=== PATIENT | male | born 1970 | race Caucasian/White ===

== ENCOUNTER → 2023-07-11 10:45 | Outpatient (REF) | payer OTHER, SELFPAY ==
[2023-07-11 11:25] LABS: % Basophils 1.1 % (0-2); % Eosinophils 2.5 % (0-6); % Immature Granulocytes 0.2 % (0-0.5); % Neutrophils 62.2 % (42.2-75.2); Absolute Basophils 0.1 10^3/uL (0-0.2); Absolute Eosinophils 0.2 10^3/uL (0-0.7); Absolute Lymphocytes 1.7 10^3/uL (1.2-3.4); Absolute Monocytes 0.5 10^3/uL (0.1-0.6); Hematocrit 45.2 % (39.0-52.0); Hemoglobin 15.6 g/dL (13.0-18.0); Mean Corp Hgb Conc. 34.5 g/dL (33.0-37.0); Mean Corpuscular Volume 89.9 fL (80.0-94.0); Mean Platelet Volume 10.9 fL (7.4-10.4); Nucleated Red Blood Cells % 0 % (-); Platelet Count 257 10^3/uL (130-400); Red Blood Cell Count 5.03 10^6/uL (4.70-6.10); Red Cell Dist. Width 13.8 % (11.5-14.5); White Blood Cell Count 6.5 10^3/uL (4.8-10.8)
[2023-07-11 11:28] LABS: Urine Albumin Negative (Neg - Trace); Urine Bilirubin Negative (Negative); Urine Character Clear (Clear); Urine Color Yellow; Urine Glucose Negative (Negative); Urine Ketone Negative (Negative); Urine Leukocyte Negative (Negative); Urine Nitrite Negative (Negative); Urine Occult Blood Negative (Negative); Urine Urobilinogen Negative (Neg - 1+)
[2023-07-11 11:51] LABS: ALT (SGPT) 29 U/L (0-50); AST (SGOT) 24 U/L (17-59); Albumin 4.4 g/dl (3.5-5.0); Alkaline Phosphatase 60 U/L (38-126); Blood Urea Nitrogen 10 mg/dl (9-20); Calcium 9.7 mg/dl (8.4-10.2); Carbon Dioxide 32 mmol/L (22-30); Chloride 99 mmol/L (98-107); Glucose 102 mg/dl (70-99); HDL Cholesterol 45 mg/dl; LDL Cholesterol, Calculated 94 mg/dl; Potassium 4.9 mmol/L (3.5-5.1); Sodium 137 mmol/L (135-145); Total Bilirubin 0.9 mg/dl (0.2-1.3); Total Cholesterol 160 mg/dl (50-199); Total Protein 7.3 g/dl (6.3-8.2); Triglyceride 108 mg/dl (10-149); Very Low Density Lipoprotein 21 mg/dl (0-30); eGFR > 60.00
[2023-07-11 12:20] LABS: PSA, Total - Screen 1.23 ng/ml (0.0-4.0)
[2023-07-13 16:52] LABS: Free T3 3.99 pg/ml (2.77-5.27)
[2023-07-14 08:32] LABS: Glycohemoglobin (HgbA1c) 5.6 % (4.0-5.6)
[2023-07-16 00:23] LABS: Thyroglobulin Antibodies <0.9 IU/mL (0.0-4.0)
== END ==
LOC: REG 10:45
PROVIDERS: ATTENDING PHYSICIAN Nurse Practitioner Family
DX: R09.81 Nasal congestion (principal); R05.3 Chronic cough; R03.0 Elevated blood-pressure reading, without diagnosis of hypertension; Z01.89 Encounter for other specified special examinations
CPT/HCPCS: 36415; 80053; 80061; 81003; 83036; 84439; 84443; 84481; 85025; 86376; 86800; G0103

== ENCOUNTER 2023-08-31 14:51 | Emergency (ER) | payer OTHER, SELFPAY ==
[2023-08-31 15:12] VITALS: BP 147/94
[2023-08-31 15:35] LABS: % Basophils 0.9 % (0-2); % Eosinophils 3.4 % (0-6); % Immature Granulocytes 0.3 % (0-0.5); % Lymphocytes 18.8 % (20.5-51.1); % Neutrophils 68.6 % (42.2-75.2); Absolute Basophils 0.1 10^3/uL (0-0.2); Absolute Eosinophils 0.4 10^3/uL (0-0.7); Absolute Monocytes 0.8 10^3/uL (0.1-0.6); Absolute Neutrophils 7.1 10^3/uL (1.4-6.5); Hematocrit 44.9 % (39.0-52.0); Hemoglobin 15.6 g/dL (13.0-18.0); Mean Corp Hgb Conc. 34.7 g/dL (33.0-37.0); Mean Corpuscular Hgb 31.4 pg (27.0-31.0); Mean Corpuscular Volume 90.3 fL (80.0-94.0); Mean Platelet Volume 11.3 fL (7.4-10.4); Nucleated Red Blood Cells % 0 % (-); Platelet Count 220 10^3/uL (130-400); Red Blood Cell Count 4.97 10^6/uL (4.70-6.10); Red Cell Dist. Width 13.4 % (11.5-14.5); White Blood Cell Count 10.4 10^3/uL (4.8-10.8)
[2023-08-31 15:47] LABS: ALT (SGPT) 17 U/L (0-50); AST (SGOT) 21 U/L (17-59); Albumin 4.4 g/dl (3.5-5.0); Alkaline Phosphatase 68 U/L (38-126); Blood Urea Nitrogen 17 mg/dl (9-20); Carbon Dioxide 26 mmol/L (22-30); Chloride 103 mmol/L (98-107); Glucose 112 mg/dl (70-99); Potassium 4.3 mmol/L (3.5-5.1); Sodium 136 mmol/L (135-145); Total Bilirubin 0.6 mg/dl (0.2-1.3); Total Protein 7.4 g/dl (6.3-8.2); eGFR > 60.00
--- NOTE | 2023-08-31 18:05 | ED.GENMED ---
History of Present Illness
<Haroon Cummings PA-C - Last Filed: 08/31/23 18:42>
General
Chief Complaint: Skin Problem
Source: patient
Time Seen by Provider: 08/31/23 17:49
Travel History
Have you had any contact with someone who has COVID-19?: No
Do you have any symptoms of coronavirus? Fever > 100 degrees, chills, cough, shortness of breath, sore throat, loss of taste or smell, muscle aches, or headache?: No
History of Present Illness
History of Present Illness:
53-year-old male with no significant past medical history presenting the emergency department for evaluation of 2 separate rashes/skin complications stating that for the last 3 months he has had a rash to his anterior upper thighs and groin area
which his primary care has been working him up for. He has been on 2 separate creams/ointments and had multiple labs done including workup for possible syphilis but states that back negative and he has not had much improvement with any of the
creams. He has attempted to put a mvah-vhx-uuxzriv medication from his cahto [place] called early in green over the area but states this has not caused him any relief. Over the last 3 days worsening pain and redness to his left lower leg in the
mid calf which she states he was more concerned about for possible infection as he noted some drainage from that area this morning. he denies any fevers, chills, rigors or any other concerns.
Past History
<Haroon Cummings PA-C - Last Filed: 08/31/23 18:42>
Past History
ED Past Medical History: None
ED Past Surgical History: None
Social History
Tobacco: Non-smoker
Alcohol: None
Drug: None
Personal: Single
Living: with family
Employment: Employed
Review of Systems
<Haroon Cummings PA-C - Last Filed: 08/31/23 18:42>
Review of Systems
All Other Systems: ROS reviewed and negative except as documented in HPI and ROS
Phy Exam
<Haroon Cummings PA-C - Last Filed: 08/31/23 18:42>
Physical Exam
Physical Exam:
GENERAL: Alert , in no apparent distress
EYE: conjunctiva clear
Head: Normocephalic atraumatic
NECK: Supple,
ENT: mmm.
LUNGS: no acute respiratory distress
NEUROLOGICAL: Alert and oriented
SKIN: Warm and dry, dried scaling rash to the bilateral anterior thighs and genital region. There is also a cream blotches from patient's jalc-emd-kozqhal medication noted. The left lower leg over the mid gastrocnemius has mild area of erythema
with purulent drainage centrally. There is no streaking or lymphangitis.
MUSCULOSKELETAL: well perfused.
PSYCH: Normal and appropriate interaction.
Scores
<Haroon Cummings PA-C - Last Filed: 08/31/23 18:42>
Heart Failure Risk
Heart Failure Risk Score: Not Applicable
Heart Score for Chest Pain Patients
STEMI patient?: Not applicable
Withdrawal Assessment of Alcohol
Withdrawal Assessment Completed?: Not applicable
Course
<Haroon Cummings PA-C - Last Filed: 08/31/23 18:42>
Orders/Labs/Results
Orders:
Orders
08/31/23 15:21
Complete Blood Count/With Diff Urgent
Comprehensive Metabolic Panel Urgent
Abnormal Lab Results
08/31/23
15:21
MCH 31.4 H pg
(27.0-31.0)
MPV 11.3 H fL
(7.4-10.4)
Absolute Neuts (auto) 7.1 H 10^3/uL
(1.4-6.5)
Absolute Monos (auto) 0.8 H 10^3/uL
(0.1-0.6)
Lymphocytes % 18.8 L %
(20.5-51.1)
Glucose 112 H mg/dl
(70-99)
08/31/23 15:21
08/31/23 15:21
Vital Signs
Initial and Last Documented VS:
Initial Vital Signs
Temp Pulse Resp BP Pulse Ox
98.3 F 95 20 147/94 96
08/31/23 15:12 08/31/23 15:12 08/31/23 15:12 08/31/23 15:12 08/31/23 15:12
Last Documented Vital Signs
Temp Pulse Resp BP Pulse Ox
98.3 F 87 16 127/93 96
08/31/23 15:12 08/31/23 18:50 08/31/23 18:50 08/31/23 18:50 08/31/23 15:12
Product Steward consulted with Physician
Product Steward consulted with physician?: Yes
Name of Physician Consulted: Toni
<Surendra Muñoz MD - Last Filed: 08/31/23 18:59>
Orders/Labs/Results
Orders:
Orders
08/31/23 15:21
Complete Blood Count/With Diff Urgent
Comprehensive Metabolic Panel Urgent
Abnormal Lab Results
08/31/23
15:21
MCH 31.4 H pg
(27.0-31.0)
MPV 11.3 H fL
(7.4-10.4)
Absolute Neuts (auto) 7.1 H 10^3/uL
(1.4-6.5)
Absolute Monos (auto) 0.8 H 10^3/uL
(0.1-0.6)
Lymphocytes % 18.8 L %
(20.5-51.1)
Glucose 112 H mg/dl
(70-99)
08/31/23 15:21
08/31/23 15:21
Vital Signs
Initial and Last Documented VS:
Initial Vital Signs
Temp Pulse Resp BP Pulse Ox
98.3 F 95 20 147/94 96
08/31/23 15:12 08/31/23 15:12 08/31/23 15:12 08/31/23 15:12 08/31/23 15:12
Last Documented Vital Signs
Temp Pulse Resp BP Pulse Ox
98.3 F 87 16 127/93 96
08/31/23 15:12 08/31/23 18:50 08/31/23 18:50 08/31/23 18:50 08/31/23 15:12
<Haroon Cummings PA-C - Last Filed: 08/31/23 18:42>
MDM/Problems Addressed
Differential Diagnosis Includes:
Psoriasis, cellulitis, abscess
MDM/Problems Addressed:
53-year-old male presenting emergency department for evaluation of 2 separate skin disorders. Overall unclear etiology for patient's thigh and genital rash however it does have an appearance of psoriasis. Will refer him to dermatology. For the
rash on the left lower leg this appears to be more likely cellulitic versus an abscess so will prescribe antibiotic for this. Patient is otherwise stable for discharge home and outpatient management.
<Haroon Cummings PA-C - Last Filed: 08/31/23 18:42>
*Pulse Oximetry
Patient hypoxic: no
*Critical Care Note
Total Time (30-74mins, 75-104mins- exclusive of procedures): Not Applicable
ED Attending Note
<Haroon Cummings PA-C - Last Filed: 08/31/23 18:42>
-
Portions of this chart may have been created with voice recognition software.� Occasional wrong word or��sound alike� substitutions may have occurred due to the inherent limitations of voice recognition software.
<Surendra Muñoz MD - Last Filed: 08/31/23 18:59>
ED Attending Note
Patient seen and examined by attending physician: Yes
I performed the substantive portion of visit, reviewed & personally made and approve the management plan that is documented in note by myself or GLENDY.: Yes
ED Attending Note:
52-year-old male wound to his left leg. Draining some. Also a chronic rash to his groin bilaterally evaluated by dermatology.
Clinically there is a open wound approximately 2 cm with some clear drainage. Relatively full-thickness. No drainable abscess. No severe surrounding cellulitis. Chronic wound appears somewhat of a eczematous like area.
Antibiotics and follow-up
Discharge Plan
Departure
Patient Disposition: Home (Routine Discharge)
Date of Disposition: 08/31/23
Time of Disposition: 18:05
Patient with high blood pressure during this ER visit?: Yes
Discharge Problem:
Cellulitis of left lower extremity, Rash and nonspecific skin eruption
Instructions: Cellulitis (Skin Infection), Adult (DC)
Prescriptions:
New
doxycycline hyclate 100 mg tablet
100 mg PO BID 10 Days Qty: 20 0RF
No Action
cyclobenzaprine 10 mg tablet
10 mg PO TID PRN (Reason: muscle spasm) Qty: 10 0RF
prednisone 50 mg tablet
50 mg PO DAILY Qty: 5 0RF
Referrals:
Brittny Tatum, DO [Active] -
Interventions
Interventions:
*Risk Screen - Suicide Last Done: 08/31/23 15:12
*General Assessment Last Done: 08/31/23 15:12
*Neglect/Abuse Screening Last Done: 08/31/23 15:12
ED-Skin Assessment Last Done: 08/31/23 18:55
Discharge Date and Time
Print Language: PASHTO
[2023-08-31 18:50] VITALS: BP 127/93
== END 2023-08-31 19:22 | disposition home or self-care (01) ==
LOC: EMR 14:51
PROVIDERS: Student in an Organized Health Care Education/Training Program; EMERGENCY PHYSICIAN Emergency Medicine
DX: R21 Rash and other nonspecific skin eruption (principal); L03.116 Cellulitis of left lower limb; R03.0 Elevated blood-pressure reading, without diagnosis of hypertension
CPT/HCPCS: 99283; 80053; 85025

== ENCOUNTER → 2023-09-11 12:09 | Outpatient (REF) | payer OTHER, SELFPAY ==
[2023-09-11 12:44] LABS: % Basophils 1.1 % (0-2); % Eosinophils 4.2 % (0-6); % Immature Granulocytes 0.3 % (0-0.5); % Lymphocytes 27.8 % (20.5-51.1); % Monocytes 8.7 % (1.7-9.3); % Neutrophils 57.9 % (42.2-75.2); Absolute Basophils 0.1 10^3/uL (0-0.2); Absolute Eosinophils 0.3 10^3/uL (0-0.7); Absolute Lymphocytes 2.1 10^3/uL (1.2-3.4); Absolute Monocytes 0.7 10^3/uL (0.1-0.6); Absolute Neutrophils 4.3 10^3/uL (1.4-6.5); Hematocrit 46.9 % (39.0-52.0); Hemoglobin 16.2 g/dL (13.0-18.0); Mean Corp Hgb Conc. 34.5 g/dL (33.0-37.0); Mean Corpuscular Hgb 30.8 pg (27.0-31.0); Mean Corpuscular Volume 89.2 fL (80.0-94.0); Mean Platelet Volume 11.5 fL (7.4-10.4); Nucleated Red Blood Cells % 0 % (-); Platelet Count 279 10^3/uL (130-400); Red Blood Cell Count 5.26 10^6/uL (4.70-6.10); Red Cell Dist. Width 13.2 % (11.5-14.5); White Blood Cell Count 7.5 10^3/uL (4.8-10.8)
[2023-09-11 13:03] LABS: ALT (SGPT) 19 U/L (0-50); AST (SGOT) 21 U/L (17-59); Albumin 4.8 g/dl (3.5-5.0); Alkaline Phosphatase 66 U/L (38-126); Blood Urea Nitrogen 12 mg/dl (9-20); Calcium 10.3 mg/dl (8.4-10.2); Carbon Dioxide 22 mmol/L (22-30); Chloride 101 mmol/L (98-107); Glucose 145 mg/dl (70-99); Potassium 4.5 mmol/L (3.5-5.1); Sodium 136 mmol/L (135-145); Total Bilirubin 0.7 mg/dl (0.2-1.3); Total Protein 7.8 g/dl (6.3-8.2); eGFR > 60.00
[2023-09-11 13:35] LABS: Hepatitis B Surface Antigen Negative (Negative)
[2023-09-11 13:52] LABS: Hepatitis B Surface Antibody Negative; Hepatitis C Antibody Negative (Negative)
[2023-09-14 10:03] LABS: Quantiferon Mitogen minus NIL 7.45 IU/mL; Quantiferon NIL 0.02 IU/mL; Quantiferon Plus TB1 minus NIL 0.02 IU/mL (0.00-0.34); Quantiferon Plus TB2 minus NIL 0.02 IU/mL (0.00-0.34); Quantiferon TB Gold Plus Negative (Negative)
== END ==
LOC: REG 12:09
PROVIDERS: ATTENDING PHYSICIAN Registered Nurse; FAMILY PHYSICIAN Internal Medicine Geriatric Medicine
DX: Z79.899 Other long term (current) drug therapy (principal)
CPT/HCPCS: 36415; 80053; 85025; 86480; 86706; 86803; 87340